=== PATIENT | female | born 1960 | race Caucasian/White ===

== ENCOUNTER 2017-06-11 05:41 | Emergency (ER) | payer OTHER ==
[~2017-06-11] VITALS: Ht 162.6 cm; Wt 81.6 kg
[2017-06-11 05:50] VITALS: BP 135/84; Ht 162.6 cm; Wt 81.6 kg
== END 2017-06-11 08:05 | disposition home or self-care (01) ==
LOC: ED 05:41
DX: H16.9 Unspecified keratitis (principal)

== ENCOUNTER 2018-03-11 09:12 | Emergency (ER) | payer OTHER ==
[~2018-03-11] VITALS: Ht 162.6 cm; Wt 87.1 kg
[2018-03-11 09:55] VITALS: BP 134/79
== END 2018-03-11 09:55 | disposition home or self-care (01) ==
LOC: ED 09:12
DX: T22.111A Burn of first degree of right forearm, initial encounter (principal); Z88.2 Allergy status to sulfonamides; Z90.710 Acquired absence of both cervix and uterus; X08.8XXA Exposure to other specified smoke, fire and flames, initial encounter; Y93.89 Activity, other specified; Y92.89 Other specified places as the place of occurrence of the external cause; Y99.8 Other external cause status

== ENCOUNTER 2018-11-11 06:14 | Emergency (ER) | payer OTHER ==
[~2018-11-11] VITALS: Ht 162.6 cm; Wt 77.1 kg
[2018-11-11 06:18] VITALS: Ht 162.6 cm; Wt 77.1 kg
[2018-11-11 07:55] VITALS: BP 136/75
== END 2018-11-11 07:55 | disposition home or self-care (01) ==
LOC: ED 06:14
DX: S83.92XA Sprain of unspecified site of left knee, initial encounter (principal); Z90.710 Acquired absence of both cervix and uterus; Z98.890 Other specified postprocedural states; W18.09XA Striking against other object with subsequent fall, initial encounter; Y93.89 Activity, other specified; Y92.89 Other specified places as the place of occurrence of the external cause; Y99.8 Other external cause status

== ENCOUNTER → 2018-12-16 | Outpatient (CLI) | payer OTHER | END | disposition home or self-care (01) | LOC: MI 08:10 | PROC: BP38ZZZ Magnetic Resonance Imaging (MRI) of Right Shoulder (ICD-10-PCS; principal; 2018-12-16) | DX: S46.011A Strain of muscle(s) and tendon(s) of the rotator cuff of right shoulder, initial encounter (principal); S43.81XA Sprain of other specified parts of right shoulder girdle, initial encounter; X58.XXXA Exposure to other specified factors, initial encounter; Y92.9 Unspecified place or not applicable ==

== ENCOUNTER → 2019-01-14 | Outpatient (CLI) | payer OTHER ==
[2019-01-14 08:58] LABS: microscopic required? NO
[2019-01-14 09:16] LABS: BASOPHIL % 0.3 % (0-2); PLATELET COUNT 251 x10^3mcL (130-400); RED CELL DISTRIBUTION WIDTH 13.3 % (11.5-14.5)
[2019-01-14 09:20] LABS: urine erythrocyte NEGATIVE (NEGATIVE)
[2019-01-14 09:53] LABS: ALBUMIN 3.9 g/dL (3.4-5.0); ALKALINE PHOSPHATASE 81 U/L (46-116); ALT/SGPT 17 U/L (14-59); AST/SGOT 10 U/L (15-37); BILIRUBIN TOTAL 0.4 mg/dL (0.20-1.00); CALCIUM 8.9 mg/dL (8.5-10.1); CARBON DIOXIDE 27.7 mmol/L (21-32); CHLORIDE SERUM 106 mmol/L (98-107); CREATININE SERUM 0.7 mg/dL (0.6-1.0); FREE T4 0.89 ng/dL (0.76-1.46); GFR1 > 60 mL/min; GLUCOSE SERUM 115 mg/dL (74-106); POTASSIUM SERUM 4.3 mmol/L (3.5-5.1); SODIUM SERUM 143 mmol/L (136-145); TOTAL PROTEIN, SERUM 7.4 g/dL (6.4-8.2)
[2019-01-14 09:57] LABS: CHOLESTEROL 255 mg/dL (<200); CHOLESTEROL/HDL RATIO 3.5; HDL CHOLESTEROL 73 mg/dL (40-60); TRIGLYCERIDES 206 mg/dL (<150)
== END | disposition home or self-care (01) ==
LOC: MA 08:37
PROC: BH02ZZZ Plain Radiography of Bilateral Breasts (ICD-10-PCS; principal; 2019-01-14)
DX: Z00.00 Encounter for general adult medical examination without abnormal findings (principal); Z12.31 Encounter for screening mammogram for malignant neoplasm of breast
CPT/HCPCS: 77067; 84439

== ENCOUNTER 2020-03-14 10:15 | Emergency (ER) | payer OTHER, SELFPAY ==
[~2020-03-14] VITALS: Ht 162.6 cm; Wt 79.4 kg
[2020-03-14 10:27] VITALS: BP 155/63; Ht 162.6 cm; Wt 79.4 kg
== END 2020-03-14 11:13 | disposition home or self-care (01) ==
LOC: ED 10:15
DX: R19.7 Diarrhea, unspecified (principal); M79.10 Myalgia, unspecified site; R11.0 Nausea; R51.9 Headache, unspecified; Z20.828 Contact with and (suspected) exposure to other viral communicable diseases; Z88.2 Allergy status to sulfonamides; Z90.710 Acquired absence of both cervix and uterus
CPT/HCPCS: U0003